=== PATIENT | male | born 1970 | race Caucasian/White ===

== ENCOUNTER 2016-12-17 22:12 | Emergency (ER) | payer SELFPAY ==
[~2016-12-17] VITALS: Ht 185.4 cm; Wt 79.0 kg
[2016-12-17 22:15] VITALS: BP 134/86; PULSE 114; RESP 18; TEMP 99.9
[2016-12-17] MEDS ORDERED: LORazepam 2 MG/ML VIAL IM ONE (22:45)
[2016-12-17] MEDS ORDERED: KETOROLAC TROMETHAMINE 60 MG/2 ML (IM) VIAL IM ONE (22:45)
--- NOTE | 2016-12-17 22:50 | PD ---
HPI . Left shoulder and low back pain Chief Complaint: Injury Time Seen by Provider: 22:36 Travel History International Travel<30 days: No Contact w/Intl Traveler<30days: No Traveled to known affect area: No History of Present Illness HPI The patient presents complaining with a left shoulder and low back injury. It occurred about 3 days ago. He states he was trying to lift a bag of concrete up over his head using his left arm. He lost control of the back of concrete pulling on his left shoulder and twisting his low back. He has taken a couple of doses of [id number] ibuprofen without relief of his pain. Pain is exacerbated by movement. He also has a couple of lesions on his left forearm. He states that they are not from IV drug use. He states that they have gradually gone down in size. PFSH Past Medical History Diabetes: Yes Patient Takes Glucophage: No Diminished Hearing: No Musculoskeletal: Yes (L4-L5 FX) Neurologic: Yes (epilepsy) Tetanus Vaccination: > 5 Years Influenza Vaccination: No Social History Alcohol Use: No Tobacco Use: Yes (1/2ppd) Substance Use: Yes (regular [facility] use) Allergies-Medications (Allergen,Severity, Reaction): Coded Allergies: No Known Allergies (Unverified , 12/17/16) Reported Meds & Prescriptions Reported Meds & Active Scripts Active Flexeril (Cyclobenzaprine HCl) 10 Mg Tab 10 Mg PO TID Ibuprofen 800 Mg Tab 800 Mg PO Q8H PRN Savanna (Hydrocodone-Acetaminophen) 5-325 mg Tab 1-2 Tab PO Q6H PRN Bactrim DS (Sulfamethoxazole-Trimethoprim) 800-160 Mg Tab 1 Tab PO BID Review of Systems Except as stated in HPI: all other systems reviewed are Neg Musculoskeletal: Positive: Myalgias, Limited ROM Skin: Positive Lesions Neurologic: No: Paresthesia, Sensory Disturbance Physical Exam Narrative GENERAL: Thin, slightly disheveled appearing man. SKIN: Warm and dry. He has 2 areas of induration with erythema and tenderness on the flexor compartment of the left forearm. I don't see any needle miguel. There is no fluctuance. HEAD: Atraumatic. Normocephalic. EYES: Pupils equal and round. ENT: No nasal bleeding or discharge. Mucous membranes pink and moist. NECK: Trachea midline. CARDIOVASCULAR: Regular rate and rhythm. RESPIRATORY: No accessory muscle use. GASTROINTESTINAL: Abdomen soft, non-tender, nondistended. MUSCULOSKELETAL: He does have some visible swelling anterior to the left shoulder joint. There are some associated muscular fasciculations seen. He will not move the shoulder. He is distally neurovascularly intact. His back has diffuse tenderness but no point tenderness. NEUROLOGICAL: Awake and alert. No obvious cranial nerve deficits. Motor grossly within normal limits. Normal speech. PSYCHIATRIC: Appropriate mood and affect; insight and judgment normal. Data Data Last Documented VS Vital Signs Date Time Temp Pulse Resp B/P Pulse Ox O2 Delivery O2 Flow Rate FiO2 12/17/16 22:15 99.9 114 18 134/86 Orders Shoulder, Complete (>2vws) (12/17/16 22:36) Ketorolac Inj (Toradol Inj) (12/17/16 22:45) Lorazepam Inj (Ativan Inj) (12/17/16 22:45) Splint Or Brace Apply/Monitor (12/17/16 23:31) Sling Cradle Arm (12/17/16 ) MDM Medical Decision Making Medical Screen Exam Complete: Yes Emergency Medical Condition: Yes Differential Diagnosis Differential diagnosis of extremity trauma includes but is not limited to fracture, sprain or strain, dislocation, contusion Narrative Course Patient presents with a chief complaint of left shoulder pain and the secondary complaints of low back pain and skin lesions on the left forearm. I suspect rotator cuff tear. Left shoulder x-ray to my interpretation is negative for fracture or dislocation. Diagnosis Primary Impression: Left shoulder strain Qualified Code: S46.912A - Left shoulder strain, initial encounter Additional Impressions: Low back strain Qualified Code: S39.012A - Low back strain, initial encounter Abscess of left forearm Referrals: Jarrett Jenkins MD 1 week Patient Instructions: General Instructions, Muscle Strain (ED), Narcotic given in the ED Med/Other Pt SpecificInfo: Prescription(s) given Scripts Cyclobenzaprine (Flexeril)10 Mg Tab10 Mg PO TID #30 TAB Ref 0 Prov:Jenise Alvarenga MD 12/17/16 Ibuprofen 800 Mg [id number] Mg PO Q8H PRN (pain) #30 TAB Ref 0 Prov:Jenise Alvarenga MD 12/17/16 Hydrocodone-Acetaminophen (Savanna)5-325 mg Tab1-2 Tab PO Q6H PRN (PAIN) #12 TAB Ref 0 Prov:Jenise Alvarenga MD 12/17/16 Sulfamethoxazole-Trimethoprim (Bactrim DS)800-160 Mg Tab1 Tab PO BID #20 TAB Ref 0 Prov:Jenise Alvarenga MD 12/17/16 Disposition: 01 DISCHARGE HOME Condition: Stable Jenise Alvarenga MD Dec 17, 2016 22:50
[2016-12-17] MEDS ORDERED: CYCL1TAB29 PO (23:25)
[2016-12-17] MEDS ORDERED: BACT800T5 PO (23:25)
[2016-12-17] MEDS ORDERED: NORC5TAB PO (23:25)
[2016-12-17] MEDS ORDERED: IBUP800T23 PO (23:25)
--- NOTE | 2016-12-17 23:39 | RADHPO ---
EXAM DATE/TIME: 12/17/2016 23:01 [facility] COMPARISON: No previous studies available for comparison. INDICATIONS : Fall. Left shoulder pain. MEDICAL HISTORY : None. SURGICAL HISTORY : None. ENCOUNTER: Initial ACUITY: 1 day PAIN SCORE: 9/10 LOCATION: Left scapular FINDINGS: Multiple view examination of the left shoulder demonstrates no evidence of fracture or dislocation. The glenohumeral and acromioclavicular joints are maintained. There is normal range of motion betwee n internal and external rotation. Bony mineralization is normal. CONCLUSION: 1. No acute findings. Mild osteoarthritis at the acromioclavicular joint. Kenneth June MD on December 17, 2016 at 23:37 Board Certified Radiologist. This report was verified electronically.
[2016-12-17 23:45] VITALS: BP 132/68; PULSE 113; RESP 16; O2SAT 94
[2016-12-17 23:47] VITALS: RESP 16
== END 2016-12-18 00:11 | disposition home or self-care (01) ==
LOC: PHED 22:12
DX: S46.912A Strain of unspecified muscle, fascia and tendon at shoulder and upper arm level, left arm, initial encounter (principal); S39.012A Strain of muscle, fascia and tendon of lower back, initial encounter; L02.414 Cutaneous abscess of left upper limb; X50.0XXA Overexertion from strenuous movement or load, initial encounter; Y93.89 Activity, other specified
CPT/HCPCS: 73030; 96372; 99283; J1885; J2060